=== PATIENT | female | born 1940 | race Caucasian/White ===

== ENCOUNTER → 2021-09-19 | Outpatient (CLI) | payer MEDICARE ==
[~2021-09-19] MED LIST: APIX5TAB PO; DOFE250C PO; FURO-125 PO; LEVO100T PO; MEMA28CA PO; METO-451 PO; POTA10TA PO; SIMV10TA PO; VIT1CAPS44 PO
--- NOTE | 2021-09-19 13:05 | Diagnostic Imaging Report ---
Clinical indication: Evaluate for growth in right ear. Cholesteatoma. No previous surgery to ears. EXAM: Axial CT scan of the IACs performed without IV contrast. Sagittal and coronal reformatted images are created. Auto Exposure Controls were utilized during the CT exam to meet ALARA standards for radiation dose reduction. COMPARISON: None. FINDINGS: Right temporal bone structures: Prominent high riding right jugular bulb is noted. There are small scattered areas of consolidation/fluid involving the right mastoid air cells. There is mild sclerosis of the mastoid air cell regions, more so than the left. There is nonspecific thickening of the tympanic membrane. There is no area of consolidation within the middle ear region. Left temporal bone structures: There are a few small areas of consolidation involving the left mastoid air cells. High riding left jugular bulb is noted. Otherwise, the remainder of the bilateral temporal bone structures are unremarkable. There are no bony erosive changes seen. The scutum are intact. The IACs, inner ears, middle ears, and external auditory canals are unremarkable. The oval and round windows are patent. There is no evidence of semicircular canal dehiscence. The visualized temporal bone portions of cranial nerve VII has normal appearance. No evidence of aberrant vascular structures. The vestibular aqueducts have normal appearance bilaterally. There is a small mucus retention cysts involving right maxillary sinus and small area of mucosal thickening involving the left maxillary sinus. IMPRESSION: 1: There is no evidence of soft tissue mass or bony erosive process. The bilateral scutum are intact. There is no evidence of cholesteatoma seen on this exam. 2: There is nonspecific thickening of the right tympanic membrane which may be from sequelae of previous infectious or inflammatory process. 3: There is a small amount of consolidation/fluid involving both mastoid air cells (right side more than the left) . 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 4: High riding bilateral jugular bulbs. 5: The remainder of the temporal bone structures are unremarkable. 6: Paranasal sinus disease. Dictated by: Dictated on workstation # [id number]
== END ==
LOC: RAD 10:15
PROVIDERS: ATTEND Otolaryngology Otolaryngology/Facial Plastic Surgery
DX: H73.891 Other specified disorders of tympanic membrane, right ear (principal); H74.8X1 Other specified disorders of right middle ear and mastoid; H83.8X3 Other specified diseases of inner ear, bilateral; J32.9 Chronic sinusitis, unspecified; H71.91 Unspecified cholesteatoma, right ear
CPT/HCPCS: 70480